=== PATIENT | male | born 1975 | race Caucasian/White ===

== ENCOUNTER 2017-04-10 01:15 | Emergency (ER) | payer SELFPAY ==
[2017-04-10] MEDS ORDERED: IPRATROPIUM/ALBUTEROL SULFATE 3 ML AMPUL.NEB NEB ONE ×2 (02:02→02:22)
[2017-04-10 02:45] LABS: BASOPHILS % 0.7 (0.0-1.5); EOSINOPHILS % 3.9 % (0.0-6.8); MEAN CORPUSCULAR HEMOGLOBIN 30.5 pg (28.0-34.0); MEAN CORPUSCULAR VOLUME 89.5 fl (80.0-100.0); MONOCYTES % 8.3 % (0.0-11.0); NEUTROPHILS # 6.5 # k/uL (1.4-7.7)
[2017-04-10 03:01] LABS: eGFR (African) > 60; eGFR (Non-African) > 60
--- NOTE | 2017-04-10 03:29 | ED Physician Documentation ---
Dyspnea - HISTORIAN Historian: patient, parent - HPI Stated Complaint: cough, congestion Chief Complaint: Dyspnea Additional Information: cough congestion fever sob. worked out in rain 3d ago went home parents keep ac very cold chills cough wheezing-thinks pneumonia Onset: days ago (1) Duration: continues in ED, worse Initiating Event: upper respiratory illness Severity: moderate Exacerbated By: exertion, laying flat, coughing Associated Symptoms: chills, productive cough. denies: bloody cough - ROS CONST: no problems EYES/ENT: none GI/: none NEURO/PSYCH: headache MS/SKIN/LYMPH: none - PAST HX Lung Disease: asthma, COPD Surgeries/Procedures: none Other History: none Allergies/Adverse Reactions: Allergies Allergy/AdvReac Type Severity Reaction Status Date / Time No Known Allergies Allergy Verified 04/10/17 01:38 Home Medications: Ambulatory Orders Medication Instructions Recorded NK [NK] 04/10/17 - SOCIAL HX Smoking History: greater than 1 pack/day Alcohol Use: none Drug Use: marijuana - FAMILY HX Family History: other (mother has same symptoms) - VITAL SIGNS Vital Signs: Vital Signs Temp Pulse Resp BP Pulse Ox 98.2 F 87 16 104/61 94 04/10/17 01:20 04/10/17 01:20 04/10/17 01:20 04/10/17 01:20 04/10/17 01:20 - REVIEWED ASSESSMENTS Nursing Assessment Reviewed: Yes Vitals Reviewed: Yes ED Results Lab/Radiology - Radiology Radiology Impressions: copd - Orders Orders: ED Orders Category Date Time Status CHEST P.A.&LAT 2 VIEWS [RAD] Stat Exams 04/10/17 Ordered CBC/PLATELET/DIFF Routine Lab 04/10/17 Ordered CMP Routine Lab 04/10/17 Ordered Ipratropium/Albuterol Sulfate [Duoneb] Med 04/10/17 02:02 Once 3 ml NEB NOW ONE Dyspnea Physical Exam - EXAM General Appearance: mild distress EENT: eye inspection normal Neck: nml inspection Respiratory: prolonged expirations, wheezes, rales CVS: reg. rate & rhythm, no murmur Abdomen: non-tender Skin: color nml, no rash. No: cyanosis, diaphoresis, pallor Extremities: non-tender, normal range of motion Neuro/Psych: oriented x3, motor nml, sensation nml, mood/affect nml Discharge Clincal Impression: acute bronchitis-copd Referrals: Primary Doctor,No [Primary Care Provider] - 2 Days Additional Instructions: dc cigarettes Home Medications: Ambulatory Orders NK [NK] 04/10/17 Condition: Good Disposition: 01 HOME, SELF-CARE Decision to Admit: NO Decision Time: 03:29
[2017-04-10 04:41] VITALS: BP 95/60
--- NOTE | 2017-04-10 06:52 | Diagnostic Imaging Report ---
VARINDER CHAMBERLAIN~ [facility] [address] [address] ~ ~ ~ ~ Report Submission Date: Apr 10, 2017 2:44:58 AM CDT Patient ~ Study Name: LENY RIGGS ~ Date: Apr 10, 2017 2:19:05 AM CDT ~ Modality Type: CR Gender: M ~ Description: CHEST : 77 ~ Institution: [facility] Physician: VARINDER CHAMBERLAIN ~ ~ ~ ~ Chest 2 views History: Shortness of breath and cough. Smoker. Findings: The lungs are hyperinflated without infiltrate. Bilateral costophrenic sulcus blunting is observed. Heart size and pulmonary vascularity are normal. Osseous structures are unremarkable. Impression: Hyperinflation and equivocal small pleural effusions. ~ Electronically signed on Apr 10, 2017 2:44:58 AM CDT by: Luigi CRESPO
== END 2017-04-10 03:25 | disposition home or self-care (01) ==
LOC: ED 01:15
DX: J44.1 Chronic obstructive pulmonary disease with (acute) exacerbation (principal); J20.9 Acute bronchitis, unspecified
CPT/HCPCS: 71020; 80053; 85025; 99283

== ENCOUNTER 2017-06-04 20:40 | Emergency (ER) | payer SELFPAY ==
--- NOTE | 2017-06-04 20:56 | ED Physician Documentation ---
Headache - HISTORIAN Historian: patient - HPI Stated Complaint: headache Chief Complaint: Headache Additional Information: Headache began two days ago, top of head, throbbing. Not as bad as some in the past. Took one toradol and one oxycontin. Nuaseated, vomiting, photosensitive. - ROS NEURO/PSYCH: denies: confusion - PAST HX Medical History: migraines (last a month ago) Allergies/Adverse Reactions: Allergies Allergy/AdvReac Type Severity Reaction Status Date / Time No Known Allergies Allergy Verified 06/04/17 20:49 Home Medications: Ambulatory Orders Medication Instructions Recorded NK [NK] 04/10/17 - SOCIAL HX Smoking History: cigarettes - Family HX Family History: none - VITAL SIGNS Vital Signs: Vital Signs Temp Pulse Resp BP Pulse Ox 97.6 F 68 16 122/75 97 06/04/17 20:40 06/04/17 20:40 06/04/17 20:40 06/04/17 20:40 06/04/17 20:40 - REVIEWED ASSESSMENTS Nursing Assessment Reviewed: Yes Vitals Reviewed: Yes Progress - Progress Progress: 2151, asleep ED Results Lab/Radiology - Orders Orders: ED Orders Category Date Time Status Place IV Lock 1T Care 06/04/17 20:53 Active 0.9 % Sodium Chloride [Normal Saline] 1,000 ml Med 06/04/17 20:53 Discontinued IV Q1H Ketorolac Tromethamine [Toradol] Med 06/04/17 20:53 Discontinued 30 mg IVP NOW ONE Ondansetron HCl/Pf [Zofran 4 mg/2 ml] Med 06/04/17 20:53 Discontinued 4 mg IVP NOW ONE Orphenadrine Citrate [Norflex] Med 06/04/17 20:53 Discontinued 60 mg IV NOW ONE diphenhydrAMINE HCL [Benadryl] Med 06/04/17 20:53 Discontinued 25 mg IVP NOW ONE Headache Physical Exam - EXAM General Appearance: alert, moderate distress (vomiting) EENT: eyes nml inspection, PERRL, nml ENT, pharynx nml Neck: normal inspection, supple Respiratory: no resp distress, breath sounds normal CVS: reg. rate & rhythm, heart sounds nml Skin: color nml (slight pallor), warm Extremitites: normal range of motion (gait, stance), no evidence of injury - NEURO/PSYCH Higher Functions: alert Cranial: nml as tested Cerebellar: nml as tested, nml gait Sensorimotor: motor nml, sensation nml (reflexes 2+ throughout) Discharge Clincal Impression: Headache Qualifiers: Headache type: unspecified Headache chronicity pattern: acute headache Intractability: not intractable Qualified Code(s): R51 - Headache Referrals: Primary Doctor,No [Primary Care Provider] - 2 Days Additional Instructions: Follow up with your provider as needed. Home Medications: Ambulatory Orders NK [NK] 04/10/17 Condition: Good Disposition: 01 HOME, SELF-CARE Decision to Admit: NO Decision Time: 21:51
[2017-06-04] MEDS: ORPHENADRINE CITRATE 60 MG/2ML IV ONE (21:10)
[2017-06-04] MEDS: diphenhydrAMINE HCL 50 MG/ML VIAL IVP ONE (21:10)
[2017-06-04] MEDS: ONDANSETRON HCL/PF 4 MG/ 2ML VIAL IVP ONE (21:10)
[2017-06-04] MEDS: 0.9 % SODIUM CHLORIDE 1,000 ML IV ONE (21:10)
[2017-06-04] MEDS: KETOROLAC TROMETHAMINE 30 MG/1ML VIAL IVP ONE (21:10)
[2017-06-04 22:06] VITALS: BP 118/72
== END 2017-06-04 22:00 | disposition home or self-care (01) ==
LOC: ED 20:40
DX: R51 Headache (principal)
CPT/HCPCS: J1200; J1885; J2360; J2405; J7030; 96361; 96374; 96375; 99283; S1016

== ENCOUNTER 2017-10-13 20:53 | Emergency (ER) | payer SELFPAY ==
[2017-10-13 21:21] VITALS: BP 105/74
--- NOTE | 2017-10-13 21:35 | Diagnostic Imaging Report ---
VAISHNAVI MAHMOOD [facility] [address] [facility] [address] 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 Physician: VAISHNAVI MAHMOOD Right leg-two views CLINICAL HISTORY: Injury on 09/26 now with swelling and redness. FINDINGS: Examination of the right tibia and fibula in AP and lateral views fails to demonstrate evidence of fracture. There is no opaque foreign body in the soft tissues and no evidence of soft tissue gas. IMPRESSION: Negative study. Electronically signed on Oct 13, 2017 9:32:00 PM SECURITY PATROL DRIVER by: Alok CRESPO
--- NOTE | 2017-10-13 21:52 | ED Physician Documentation ---
Lower Extremity Injury - HPI Stated Complaint: rt guido injury Chief Complaint: Lower Extremity Injury Additional Information: Patrice saw kicked back 4-5 inch logs twice, that hit him in [place], on September 26. Still has bumps on leg. Friend got sepsis and he is afraid he has it too. - ROS CONST: no problems - PAST HX Past History: other (HAMM's) Allergies/Adverse Reactions: Allergies Allergy/AdvReac Type Severity Reaction Status Date / Time No Known Allergies Allergy Verified 10/13/17 21:10 Home Medications: Ambulatory Orders Medication Instructions Recorded NK [NK] 04/10/17 - SOCIAL HX Smoking History: cigarettes - FAMILY HX Family History: no significant history - VITAL SIGNS Vital Signs: Vital Signs Temp Pulse Resp BP Pulse Ox 98.4 F 76 16 105/74 97 10/13/17 20:53 10/13/17 20:53 10/13/17 20:53 10/13/17 20:53 10/13/17 20:53 - REVIEWED ASSESSMENTS Nursing Assessment Reviewed: Yes Vitals Reviewed: Yes Progress - Progress Progress: Study Name: LENY RIGGS Date: Oct 13, 2017 9:16:16 PM 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 Physician: VAISHNAVI MAHMOOD - ER Right leg-two views CLINICAL HISTORY: Injury on 09/26 now with swelling and redness. FINDINGS: Examination of the right tibia and fibula in AP and lateral views fails to demonstrate evidence of fracture. There is no opaque foreign body in the soft tissues and no evidence of soft tissue gas. IMPRESSION: Negative study. Electronically signed on Oct 13, 2017 9:32:00 PM PROGRAMMING DIRECTOR by: Alok Peters ED Results Lab/Radiology - Orders Orders: ED Orders Category Date Time Status TIBIA & FIBULA 2 VIEW [RAD] Stat Exams 10/13/17 Completed Lower Extremities Injury Phy - Physical Exam General Appearance: no acute distress, alert Legs: right: other (medial tinia, just distal to knee, with firm area, 1 cm diameter, tender to palpation, Smaller bump distal 1/3 ant tibia, also tender. No discoloration or erythema or swelling. ), N/A: normal inspection, no evidence of injury (gait and stance normal) Knees: right: normal inspection, no evidence of injury Ankle: right: normal inspection, no evidence of injury Foot: right foot: normal inspection, no evidence of injury Gait: normal Neuro/Vascular/Tendon: no vascular compromise, motor nml, sensation nml, other ( Right PT 2+) Head/ENT: nml inspection Neck/Back: nml inspection Resp/CVS: no resp. distress Discharge Clincal Impression: Bone bruise Referrals: Primary Doctor,No [Primary Care Provider] - 2 Days Additional Instructions: Ice to the sore areas several times a day for 20 minutes of each hour you are awake. Elevate the leg as much a possible. Return to the ER or see your provider with redness or heat in the leg. Condition: Good Disposition: 01 HOME, SELF-CARE Decision to Admit: NO Decision Time: 21:57
== END 2017-10-13 22:00 | disposition home or self-care (01) ==
LOC: ED 20:53
DX: S80.11XA Contusion of right lower leg, initial encounter (principal); X58.XXXA Exposure to other specified factors, initial encounter; Y93.9 Activity, unspecified; Y99.9 Unspecified external cause status
CPT/HCPCS: 73590; 99283

== ENCOUNTER 2017-10-16 17:27 | Emergency (ER) | payer SELFPAY ==
[2017-10-16 17:47] VITALS: BP 112/72
--- NOTE | 2017-10-16 17:50 | ED Physician Documentation ---
General Adult - HISTORIAN Historian: patient - HPI Stated Complaint: left inguinal hernea Chief Complaint: General Adult Further Comments: yes (42 year old male patient presents with left inguinal hernia, patient reports hernia out x 24 hours unable to reduce. Patient has not been able to consult with surgeon due to no insurance. Denies vomiting, last BM yesterday.) - ROS CONST: no problems EYES/ENT: none CVS/RESP: none GI/: none MS/SKIN/LYMPH: none NEURO/PSYCH: denies: headache - PAST HX Past History: none Other History: none Allergies/Adverse Reactions: Allergies Allergy/AdvReac Type Severity Reaction Status Date / Time No Known Allergies Allergy Verified 10/16/17 17:47 Home Medications: Ambulatory Orders Medication Instructions Recorded NK [NK] 04/10/17 - SOCIAL HX Smoking History: cigarettes - FAMILY HX Family History: No - VITAL SIGNS Vital Signs: Vital Signs Temp Pulse Resp BP Pulse Ox 97.8 F 76 20 112/72 97 10/16/17 17:27 10/16/17 17:27 10/16/17 17:27 10/16/17 17:27 10/16/17 17:27 - REVIEWED ASSESSMENTS Nursing Assessment Reviewed: Yes Vitals Reviewed: Yes General Adult Physical Exam - PHYSICAL EXAM GENERAL APPEARANCE: mild distress EENT: eye inspection normal, CELINA CVS: reg rate & rhythm, heart sounds normal ABDOMEN: soft, other (left inguinal hernia noted; easily reduced with massage. 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 Condition: Stable Disposition: 01 HOME, SELF-CARE Decision to Admit: NO Decision Time: 17:50
== END 2017-10-16 18:03 | disposition home or self-care (01) ==
LOC: ED 17:27
DX: K40.91 Unilateral inguinal hernia, without obstruction or gangrene, recurrent (principal)
CPT/HCPCS: 99283

== ENCOUNTER 2017-11-04 16:42 | Emergency (ER) | payer SELFPAY ==
[2017-11-04] MEDS ORDERED: ORPHENADRINE CITRATE 60 MG/2ML IM ONE (17:35)
[2017-11-04] MEDS ORDERED: KETOROLAC TROMETHAMINE 60 MG/2 ML VIAL IM ONE (17:35)
--- NOTE | 2017-11-04 17:57 | ED Physician Documentation ---
Low Back Pain - HISTORIAN Historian: patient - HPI Stated Complaint: left back pain Chief Complaint: Low Back Pain/ Injury History: back pain Onset: days ago (14) Duration: continues in ED Recent Injury: Yes (14 days ago, heavy lifting) Context: lifting Severity: severe Worsened By:: upright position Relieved By: nothing Further Comments: yes (42 year old male patient presents with complaint of low back pain. Patient states he "lifted something heavy at work the day after I was seen her two weeks ago". Patient denies using any OTC medications, has been using a heating pad.) - ROS CONST: no problems CVS/RESP: none EYES/ENT: none MS/SKIN/LYMPH: back pain Neuro/Psych: none GI/: denies: abdominal pain - PAST HX Past History: other (inguinal hernia bilateral) Allergies/Adverse Reactions: Allergies Allergy/AdvReac Type Severity Reaction Status Date / Time No Known Allergies Allergy Verified 11/04/17 17:25 Home Medications: Ambulatory Orders Medication Instructions Recorded Cyclobenzaprine HCl [Flexeril] 10 mg PO TID PRN #30 tablet 11/04/17 Ketorolac Tromethamine [Toradol] 10 mg PO TID #15 tablet 11/04/17 - SOCIAL HX Smoking History: cigarettes - FAMILY HX Family History: none - VITAL SIGNS Vital Signs: Vital Signs Temp Pulse Resp BP Pulse Ox 98.2 F 74 18 126/94 98 11/04/17 17:29 11/04/17 17:29 11/04/17 17:29 11/04/17 17:29 11/04/17 17:29 - REVIEWED ASSESSMENTS Nursing Assessment Reviewed: Yes Vitals Reviewed: Yes Progress - Progress Progress: At discharge patient c/o continued pain - explained it would take some time to for muscles to relax. 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 Patient upset that pain was not completely resolve. Explained it would take more time for pain to resolve. ED Results Lab/Radiology - Orders Orders: ED Orders Category Date Time Status Ketorolac Tromethamine [Toradol] Med 11/04/17 17:35 Discontinued 60 mg IM NOW ONE Orphenadrine Citrate [Norflex] Med 11/04/17 17:35 Discontinued 60 mg IM NOW ONE Low Back Pain/Injury - Physical Exam General Appearance: mild distress Resp/CVS: chest non-tender, breath sounds nml, heart sounds nml, no resp. distress, lungs clear, reg. rate & rhythm Back: muscle spasm (left lumbar paraspinous muscles). No: vertebral point- tendernes Neuro/Psych: oriented x3, motor nml, sensation nml, bilat. 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 You may use Tylenol every 4hour as needed for pain. Limit your dose to less than 4 G per day. Do not take ibuprofen, aleve, naproxen or any other NSAID while you are on toradol. You may want to try massage, over the counter lidocaine patches, biofreeze, jaswant rodriguez or aspercream . Condition: Stable Disposition: 01 HOME, SELF-CARE Decision to Admit: NO Decision Time: 17:57
[2017-11-04 18:34] VITALS: BP 121/86
== END 2017-11-04 18:04 | disposition home or self-care (01) ==
LOC: ED 16:42
DX: M54.5 Low back pain (principal)
CPT/HCPCS: 96374; 96375; 99283; J1885; J2360

== ENCOUNTER 2018-01-30 00:07 | Emergency (ER) | payer SELFPAY ==
[2018-01-30 00:18] VITALS: BP 113/78
[2018-01-30] MEDS ORDERED: CEPHALEXIN 250 MG CAPSULE PO ONE (00:19)
--- NOTE | 2018-01-30 00:42 | ED Physician Documentation ---
General Adult - HISTORIAN Historian: patient - HPI Stated Complaint: left rear jaw pain Chief Complaint: General Adult Onset: days ago (2) Timing: still present Severity: moderate Further Comments: yes (Pt is a 42 yo male with a small swelling in his L jaw for 1 day. Pt is edentulous with dentures. Pt has had the) - ROS CONST: no problems EYES/ENT: other (small swelling in L jaw) CVS/RESP: none GI/: none MS/SKIN/LYMPH: none - PAST HX Past History: none Allergies/Adverse Reactions: Allergies Allergy/AdvReac Type Severity Reaction Status Date / Time No Known Allergies Allergy Verified 01/30/18 00:15 Home Medications: Ambulatory Orders Medication Instructions Recorded Cephalexin [Keflex] 500 mg PO Q8H #30 capsule 01/30/18 - SOCIAL HX Smoking History: cigarettes - FAMILY HX Family History: No - VITAL SIGNS Vital Signs: Vital Signs Temp Pulse Resp BP Pulse Ox 98.7 F 71 16 113/78 97 01/30/18 00:15 01/30/18 00:15 01/30/18 00:15 01/30/18 00:15 01/30/18 00:15 - REVIEWED ASSESSMENTS Nursing Assessment Reviewed: Yes Vitals Reviewed: Yes Progress - Progress Progress: Rx Keflex 500 mg po tid x 10 days, 1st dose in ER. Handout on parotid duct blockage given. F/u is sx unresolved or unimproved after 3-5 days. General Adult Physical Exam - PHYSICAL EXAM GENERAL APPEARANCE: mild distress EENT: pharynx normal, other (swelling L cheek, ? parodid duct blockage vs small abscess) RESPIRATORY: no resp distress, chest non-tender CVS: reg rate & rhythm, heart sounds normal BACK: normal inspection SKIN: warm/dry, normal color EXTREMITIES: non-tender, normal range of motion, no evidence of injury, no edema NEURO: oriented X3, motor nml, sensation nml Discharge Clincal Impression: swelling in L cheek/jaw, possible parotid blockage Prescriptions: Cephalexin [Keflex] 500 mg PO Q8H #30 capsule Referrals: Primary Doctor,No [Primary Care Provider] - Condition: Good Disposition: 01 HOME, SELF-CARE Decision to Admit: NO Decision Time: 00:48
== END 2018-01-30 00:30 | disposition home or self-care (01) ==
LOC: ED 00:07
DX: R68.84 Jaw pain (principal); R22.0 Localized swelling, mass and lump, head
CPT/HCPCS: 99283

== ENCOUNTER 2018-03-05 03:54 | Emergency (ER) | payer SELFPAY ==
[2018-03-05 05:14] VITALS: BP 110/70
--- NOTE | 2018-03-05 05:18 | ED Physician Documentation ---
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 no sig erythema or swelling. no axillary adenopathy. able to move arm w/o difficulty Onset: yesterday Where: work Animal: dog Appearance of Animal: appeared well (pt advised tro assure the dog was well at least ten days from now. tetanus immun utd) Observation/ Capture of Animal: animal is known, can be observed Context of Attack: "unprovoked" attack, entered animals domain Severity of Injury: scratched, bitten. denies: mucous membrane contact Location of Injury: L upper extremity Associated Symptoms: pain, pain with movement. denies: numbness - ROS CONST: no problems EYES/ENT: denies: problems with vision CVS/RESP: denies: chest pain, shortness of breath NEURO: none GI/: none MS/SKIN/LYMPH: none - PAST HX Past History: none, other (nya inguinal hernias easily reducible) Allergies/Adverse Reactions: Allergies Allergy/AdvReac Type Severity Reaction Status Date / Time No Known Allergies Allergy Verified 03/05/18 04:32 Home Medications: Ambulatory Orders Medication Instructions Recorded NK [NK] 03/05/18 - SOCIAL HX Smoking History: cigarettes Alcohol Use: occasionally Drug Use: none - FAMILY HX Family History: no significant history - VITAL SIGNS Vital Signs: Vital Signs Temp Pulse Resp BP Pulse Ox 98.2 F 71 16 110/70 99 03/05/18 05:00 03/05/18 05:00 03/05/18 05:00 03/05/18 05:00 03/05/18 05:00 - REVIEWED ASSESSMENTS Nursing Assessment Reviewed: Yes Vitals Reviewed: Yes Animal Bite Physical Exam - Physical Exam General Appearance: mild distress Neuro/Vascular/Tendon: no vascular compromise, oriented x3, sensation nml, ROM nml. No: abnml color, warmth, abnml cap refill Psych: mood/affect nml HEENT: atraumatic Resp/CVS: breath sounds nml, heart sounds nml Abdomen: uninjured,nml inspection, non-tender Back: uninjured, nml inspection Extremities: other (arm as ddescribed) Discharge Clincal Impression: dog bite lt upper arm Referrals: Primary Doctor,No [Primary Care Provider] - 2 Days Comments: keep clean soap waTER Condition: Good Disposition: 01 HOME, SELF-CARE Decision to Admit: NO Decision Time: 05:23
== END 2018-03-05 05:00 | disposition home or self-care (01) ==
LOC: ED 03:54
DX: S40.921A Unspecified superficial injury of right upper arm, initial encounter (principal); W54.0XXA Bitten by dog, initial encounter; Y92.9 Unspecified place or not applicable
CPT/HCPCS: 99282

== ENCOUNTER 2018-03-21 23:02 | Emergency (ER) | payer SELFPAY ==
[2018-03-22 03:42] VITALS: BP 107/76
== END 2018-03-21 23:30 | disposition left against medical advice (07) ==
LOC: ED 23:02
DX: Z53.21 Procedure and treatment not carried out due to patient leaving prior to being seen by health care provider (principal)
CPT/HCPCS: 99281